=== PATIENT | female | born 1940 ===

== ENCOUNTER → 2016-11-25 | Outpatient (CLI) | payer MEDICARE, BC ==
[~2016-11-25] MED LIST: AMBIEN10 MG PO; ASPIR 8181 MG PO; BIOTIN10000 MC1 PO; CALCIUM 600+D31 EACH PO; CELEBREX200 MG PO; CLARITIN10 MG PO; GLUCOSAMINE &1 EAC1 PO; LASIX40 MG PO; LOPRESSOR50 MG PO; LYRICA 50MG CAP50 MG PO; NEXIUM40 MG PO; OCUVITE EYE +1 EACH PO; PREMARIN VAG30 GM TOP; RESTASIS1 EACH OPHTH; THERA-VITE W/ B1 TAB PO; TRIMETHOPRIM100 MG PO; VITAMIN D1000 UNI1 PO; ZOCOR40 MG PO
== END | disposition disaster alternative care site (69) ==
LOC: LFPA 13:45
DX: R35.0 Frequency of micturition (principal)

== ENCOUNTER → 2017-01-24 | Outpatient (CLI) | payer MEDICARE, BC | END | disposition disaster alternative care site (69) | LOC: LFPA 15:02 | DX: R30.0 Dysuria (principal) ==

== ENCOUNTER → 2017-03-19 | Outpatient (CLI) | payer MEDICARE, BC | END | disposition disaster alternative care site (69) | LOC: GBCOE 12:23 | DX: Z12.31 Encounter for screening mammogram for malignant neoplasm of breast (principal) | CPT/HCPCS: G0202 ==

== ENCOUNTER → 2017-05-26 | Outpatient (CLI) | payer MEDICARE, BC | END | disposition disaster alternative care site (69) | LOC: LFPA 09:57 | DX: M81.8 Other osteoporosis without current pathological fracture (principal) ==